=== PATIENT | female | born 1990 | race American Indian/Alaskan Native ===

== ENCOUNTER 2016-11-14 21:03 | Emergency (ER) | payer SELFPAY ==
[2016-11-14] MEDS ORDERED: Sodium Chloride 0.9% 2,000 ML IV ONE (21:14)
--- NOTE | 2016-11-14 21:16 | C.PDOC ---
History Of Present Illness Patient presents to the ER with a complaint of vaginal bleeding. Patient notes she is , P:0. Patient states she was seen at [facility] yesterday and had an US done that showed a miscarriage. Patient proceeded to go to work this morning, after work she started bleeding significantly. Patient reports soaking a few pads and having to change it every 20-30 minutes. Patient then states she sat on the toilet and had an syncopal episode which prompted her to come to the ER. Patient denies chest pain, palpitations or SOB. Time Seen by Provider: 11/14/16 21:14 Chief Complaint (Nursing): Female Genitourinary History Per: Patient History/Exam Limitations: no limitations Onset/Duration Of Symptoms: Hrs Current Symptoms Are (Timing): Still Present Severity: None Pain Scale Rating Of: 0 Quality Of Discomfort: Other (No pain) Associated Symptoms: denies: Chest Pain, Other (Palpitations, SOB) Alleviating Factors: None Recent travel outside of the [place]: No Abnormal Vaginal Bleeding: Yes : 3 Para: 0 Past Medical History Reviewed: Historical Data, Nursing Documentation, Vital Signs Vital Signs: Last Vital Signs Temp 98.8 F 11/15/16 01:05 Pulse 90 11/15/16 01:05 Resp 18 11/15/16 01:05 BP 118/74 11/15/16 01:05 Pulse Ox 96 11/15/16 01:05 - Medical History PMH: No Chronic Diseases Surgical History: No Surg Hx Family History: States: No Known Family Hx - Social History Hx Alcohol Use: Yes Hx Substance Use: No - Immunization History Hx Tetanus Toxoid Vaccination: Yes Hx Influenza Vaccination: Yes Hx Pneumococcal Vaccination: Yes Review Of Systems Cardiovascular: Negative for: Chest Pain, Palpitations Respiratory: Negative for: Shortness of Breath Genitourinary: Positive for: Vaginal Bleeding Physical Exam - Physical Exam Appears: Non-toxic Skin: Warm, Dry Oral Mucosa: Moist Chest: Symmetrical, No Tenderness Cardiovascular: Rhythm Regular, No Murmur Respiratory: No Rales, No Rhonchi, No Wheezing Gastrointestinal/Abdominal: Soft, No Tenderness Neurological/Psych: Oriented x3 ED Course And Treatment - Laboratory Results Result Diagrams: 11/14/16 21:41 11/14/16 21:41 ECG: Interpreted By Me, Viewed By Me ECG Rhythm: Sinus Rhythm (90), Nonspecific Changes O2 Sat by Pulse Oximetry: 100 (Room air) Pulse Ox Interpretation: Normal Progress Note: Blood work, EKG, urinalysis and pelvic US ordered. IV fluids administered. spoke with dr Pittman. will come and see the pt in the ed. 11:15 pm pt was seen by dr pittman. some clots removed from cervix. ok to give 0.2 methergine and 800 mcg cytotec. 3:28 AM no active bleeding. vitals stable, ok to dc Reevaluation Time: 03:25 Reassessment Condition: Improved Critical Care Time - Critical Care Note Total Time (in mins): 30 Documented critical care: time excludes all time spent performing seperately billable procedures. Medical Decision Making Medical Decision Making: Upon provider reevaluation patient is feeling better, is medically stable, and requires no further treatment in the ED at this time. Patient will be discharged home with Rx for flagl, zofran, percocet . Counseling was provided and all questions were answered regarding diagnosis and need for follow up with the referred clinic. There is agreement to discharge plan. Return if symptoms persist or worsen. Disposition Counseled Patient/Family Regarding: Studies Performed, Diagnosis, Need For Followup, Rx Given - Disposition Referrals: [facility] [Outside] [facility] [Outside] Disposition: HOME/ ROUTINE Disposition Time: 21:14 Condition: FAIR Prescriptions: Metronidazole [Flagyl] 500 mg PO BID #10 tablet Ondansetron ODT [Zofran ODT] 1 odt PO BID PRN #6 odt PRN Reason: Nausea/Vomiting oxyCODONE/Acetaminophen [Percocet 5/325 mg Tab] 1 tab PO QID PRN #12 tab PRN Reason: Pain Instructions: Spontaneous Miscarriage (ED) Forms: Work/School/Gym Excuse - Clinical Impression Clinical Impression: Spontaneous miscarriage - Scribe Statement The provider has reviewed the documentation as recorded by the Scribjessica Ludwig All medical record entries made by the Gurdeepibe were at my direction and personally dictated by me. I have reviewed the chart and agree that the record accurately reflects my personal performance of the history, physical exam, medical decision making, and the department course for this patient. I have also personally directed, reviewed, and agree with the discharge instructions and disposition.
[2016-11-14 21:45] LABS: BASO % 0.5 % (0.0-2.0); EOS # 0.1 K/uL (0.0-0.7); EOS % 0.7 % (0.0-4.0); LYMPH # 1.5 K/uL (1.0-4.3); LYMPH % 15.5 % (20.0-40.0); MEAN CELL VOLUME 78.6 fL (81.0-99.0); MEAN CORPUSCULAR HEMOGLOBIN 25.2 pg (27.0-31.0); MEAN CORPUSCULAR HGB CONC 32.1 g/dL (33.0-37.0); MEAN PLATELET VOLUME 8.9 fL (7.2-11.7); MONO # 0.4 K/uL (0.0-0.8); MONO % 3.9 % (0.0-10.0); NRBC % 0.1 % (0.0-2.0); RED CELL DISTRIBUTION WIDTH 15.6 % (11.5-14.5)
[2016-11-14 21:54] LABS: CHLORIDE 102 mmol/L (98-107); INR 1.1; SODIUM 136 mmol/L (132-148)
[2016-11-14 21:57] LABS: ALB/GLOB RATIO 1.3 (1.0-2.1); ALKALINE PHOSPHATASE 33 U/L (38-126); ALT/SGPT 19 U/L (9-52); AST/SGOT 22 U/L (14-36); BILIRUBIN,TOTAL 0.4 mg/dL (0.2-1.3); BLOOD UREA NITROGEN 19 mg/dL (7-17); CALCIUM 8.5 mg/dl (8.6-10.4); CARBON DIOXIDE 25 mmol/L (22-30); GFR AFRICAN-AMERICAN > 60; GLUCOSE,RANDOM 99 mg/dL (65-105); TOTAL PROTEIN 6.6 g/dL (6.3-8.3)
--- NOTE | 2016-11-14 23:44 | CP.PCM.CON ---
History of Present Illness - History of Present Illness History of Present Illness: Reason for consult-vaginal bleeding HPI Patient presents to the ER with a complaint of vaginal bleeding. Patient notes she is , P:0. Patient states she was seen at [facility] yesterday and had an US done that showed a miscarriage. Patient states that after she went home her bleeding slowed down and proceeded to go to work this morning, after work she started bleeding significantly and passed some clots at home this evening.while she was in bathroom. Patient then states she sat on the toilet and had an syncopal episode which prompted her to come to the ER. Patient denies chest pain, palpitations or SOB.Patient states that she does not feel light headed or dizzy anymore Review of Systems - Review of Systems All systems: reviewed and no additional remarkable complaints except - Cardiovascular Cardiovascular: absent: Chest Pain, Dyspnea, Lightheadedness, Palpitations, Rapid Heart Rate - Respiratory Respiratory: absent: Cough, Dyspnea - Gastrointestinal Gastrointestinal: absent: Nausea, Vomiting - Reproductive: Female Reproductive:Female: Abnormal Vaginal Bleeding Past Patient History - Past Social History Smoking Status: Never Smoked - CARDIAC Hx Cardiac Disorders: No - PULMONARY Hx Respiratory Disorders: No - NEUROLOGICAL Hx Neurological Disorder: No - RENAL Hx Chronic Kidney Disease: No - GASTROINTESTINAL Hx Gastrointestinal Disorders: No - GENITOURINARY/GYNECOLOGICAL LMP:: unknown : 3 Termination of : 2 - PSYCHIATRIC Hx Substance Use: No - SURGICAL HISTORY Hx Surgeries: No Other/Comment: 3 abortions - ANESTHESIA Hx Anesthesia: No Meds Allergies/Adverse Reactions: Allergies Allergy/AdvReac Type Severity Reaction Status Date / Time No Known Allergies Allergy Verified 11/14/16 21:11 Physical Exam - Constitutional Appears: Well, No Acute Distress - Respiratory Exam Respiratory Exam: Clear to Auscultation Bilateral, NORMAL BREATHING PATTERN - Cardiovascular Exam Cardiovascular Exam: REGULAR RHYTHM - GI/Abdominal Exam GI & Abdominal Exam: Soft. absent: Guarding, Hernia, Rigid, Tenderness - Extremities Exam Extremities exam: Negative for: calf tenderness - Back Exam Back exam: absent: CVA tenderness (L), CVA tenderness (R) - Neurological Exam Neurological exam: Alert, Oriented x3 - Psychiatric Exam Psychiatric exam: Normal Affect, Normal Mood - Skin Skin Exam: Normal Color Results - Vital Signs Recent Vital Signs: Last Vital Signs Temp 97.8 F 11/14/16 21:07 Pulse 68 11/14/16 22:52 Resp 19 11/14/16 22:52 BP 108/68 11/14/16 22:52 Pulse Ox 100 11/14/16 23:19 - Labs Result Diagrams: 11/14/16 21:41 11/14/16 21:41 Labs: Laboratory Results - last 24 hr 11/14/16 11/14/16 11/14/16 21:41 21:41 21:41 WBC 10.0 RBC 3.06 L Hgb 7.7 L Hct 24.0 L MCV 78.6 L MCH 25.2 L MCHC 32.1 L RDW 15.6 H Plt Count 214 MPV 8.9 Neut % (Auto) 79.4 H Lymph % (Auto) 15.5 L [place] % (Auto) 3.9 Eos % (Auto) 0.7 Baso % (Auto) 0.5 Neut # 7.9 H Lymph # 1.5 [place] # 0.4 Eos # 0.1 Baso # 0.0 PT 12.3 H INR 1.1 APTT 30 Sodium 136 Potassium 4.0 Chloride 102 Carbon Dioxide 25 Anion Gap 13 BUN 19 H Creatinine 0.6 L Est GFR ( Amer) > 60 Est GFR (Non-Af Amer) > 60 Random Glucose 99 Calcium 8.5 L Total Bilirubin 0.4 AST 22 ALT 19 Alkaline Phosphatase 33 L Total Protein 6.6 Albumin 3.7 Globulin 2.9 Albumin/Globulin Ratio 1.3 Beta HCG, Quant 2045.80 Blood Type Antibody Screen 11/14/16 21:41 WBC RBC Hgb Hct MCV MCH MCHC RDW Plt Count MPV Neut % (Auto) Lymph % (Auto) [place] % (Auto) Eos % (Auto) Baso % (Auto) Neut # Lymph # [place] # Eos # Baso # PT INR APTT Sodium Potassium Chloride Carbon Dioxide Anion Gap BUN Creatinine Est GFR ( Amer) Est GFR (Non-Af Amer) Random Glucose Calcium Total Bilirubin AST ALT Alkaline Phosphatase Total Protein Albumin Globulin Albumin/Globulin Ratio Beta HCG, Quant Blood Type O POSITIVE Antibody Screen Negative Assessment & Plan (1) Spontaneous miscarriage Assessment and Plan: Patient with spontaneous s/p ultrasound yesterday a [facility] where no intrauterine was seen.patientr eports episode of heavy bleeding today.BCG decreased from yesterday.Ultrasound today also shows endoemtrial lining measuring 6mm with clots in LUIGI/Cervix.On exam speculum exam-approx 100cc of blood clots removed from cervix and luigi by grasping with ring forceps.Bleeding slow after that.Patient denies feeling light headed or dizzy now.Vitals signs stable. Give im methergine and po cytotec 800mcg stat .Discussed with patient that if bleeding starts again would recommend d&c. Patient voices understanding the plan and desires to proceed.All questions answered. Status: Acute
[2016-11-15 03:27] VITALS: O2SAT 100
[2016-11-15 03:56] VITALS: BP 113/53; PULSE 95; RESP 16; TEMP 99
--- NOTE | 2016-11-15 08:59 | US ---
HISTORY: Heavy vaginal bleeding. Beta HCG results: 2045.80 LMP 09/10/2016 COMPARISON: None available. TECHNIQUE: Transvaginal only. Real -time technique with 2D, duplex and color Doppler FINDINGS: UTERUS: Measures 5.5 x 12.2 cm. Normal in size and appearance. No fibroid or other mass lesion seen. ENDOMETRIUM: Measures 6.1 mm in diameter. No ultrasound findings to suggest gestational sac or gestational pole. Well-formed fluid collection in the lower endometrial canal 1.2 x 3.5 x 2.8 cm. This appears be complex fluid with debris/hemorrhage. CERVIX: No cervical abnormality identified. RIGHT OVARY: Measures 2.4 x 2.7 cm. No solid mass. Normal flow. LEFT OVARY: Measures cm. No solid mass. Normal flow. FREE FLUID: No significant free fluid noted. OTHER FINDINGS: None. IMPRESSION: Findings consistent with impending . No visible ectopic gestation. Concordant results (preliminary interpretation) provided by [facility]. Procedure Completed: 22:06 Preliminary ([facility]) Report: Dictated and Authenticated: 22:42 Final Interpretation: 08:57. November 15, 2016.
--- NOTE | 2016-11-18 19:39 | CARD ---
APPROVED REPORT EKG Measurement Heart [id number] <Conclusion> Normal sinus rhythm with sinus arrhythmia Normal ECG
== END 2016-11-15 03:57 | disposition home or self-care (01) ==
LOC: C.ER 21:03
DX: O03.9 Complete or unspecified spontaneous abortion without complication (principal)
CPT/HCPCS: 76830; 80053; 84702; 85025; 85610; 85730; 86850; 86900; 96372; 96374; 99285; J1885; J2210; J7040

== ENCOUNTER 2016-11-19 19:12 | Observation (INO) | payer SELFPAY ==
[2016-11-19] MEDS ORDERED: Sodium Chloride 0.9% 1,000 ML IV ONE (20:05)
--- NOTE | 2016-11-19 20:05 | C.PDOC ---
History Of Present Illness Patient presents to the ED with complaints of increased vaginal bleeding today while in the shower. Patient states she was seen at [facility] on 2016 for a miscarriage. Patient is , LMP 08/2016, and denies any chest pain , SOB, or palpitations. Time Seen by Provider: 11/19/16 20:04 Chief Complaint (Nursing): Female Genitourinary History Per: Patient History/Exam Limitations: no limitations Onset/Duration Of Symptoms: Hrs Current Symptoms Are (Timing): Still Present Severity: Mild Pain Scale Rating Of: 4 Associated Symptoms: denies: Fever, Chills, Nausea, Vomiting Recent travel outside of the [place]: No Additional History Per: Prior Records Abnormal Vaginal Bleeding: Yes Last Menstral Period: 08/2016 : 3 Para: 0 Past Medical History Reviewed: Historical Data, Nursing Documentation, Vital Signs Vital Signs: Last Vital Signs Temp 98.7 F 11/20/16 01:07 Pulse 92 H 11/20/16 05:47 Resp 22 11/20/16 05:47 BP 112/58 L 11/20/16 05:47 Pulse Ox 100 11/20/16 06:38 Family History: States: Unknown Family Hx - Social History Hx Alcohol Use: Yes Hx Substance Use: No - Immunization History Hx Tetanus Toxoid Vaccination: No Hx Influenza Vaccination: Yes Hx Pneumococcal Vaccination: No Review Of Systems Constitutional: Negative for: Fever, Chills, Sweats Cardiovascular: Negative for: Chest Pain, Palpitations Respiratory: Negative for: Cough, Shortness of Breath Gastrointestinal: Negative for: Nausea, Vomiting, Abdominal Pain, Diarrhea Genitourinary: Positive for: Vaginal Bleeding Physical Exam - Physical Exam Appears: Non-toxic, No Acute Distress Skin: Warm, Dry Head: Atraumatic Oral Mucosa: Moist Neck: Supple Chest: Symmetrical, No Deformity Cardiovascular: Rhythm Regular Respiratory: No Rales, No Rhonchi, No Stridor, No Wheezing Gastrointestinal/Abdominal: Soft, No Tenderness, No Distention, No Guarding, No Rebound Extremity: Normal ROM, No Tenderness Neurological/Psych: Oriented x3 ED Course And Treatment - Laboratory Results Result Diagrams: 11/20/16 06:13 11/19/16 04:52 O2 Sat by Pulse Oximetry: 100 Pulse Ox Interpretation: Normal - CT Scan/US US Pelvis Other Rad Studies (CT/US): Read By Radiologist, Radiology Report Reviewed CT/US Interpretation: EXAM: US Pelvis Complete. CLINICAL HISTORY: 26 years old, female; Pain and signs and symptoms; Other: Bleeding; Pelvic pain; ;. Additional info: Retained products of conception. TECHNIQUE: Real-time pelvic ultrasound (complete) with image documentation. COMPARISON: No relevant prior studies available. FINDINGS: Uterus/cervix: The endometrium is slightly thickened and heterogeneous. Patient has been passing. clots today, and during this examination. No myometrial mass. Right ovary: Right ovary 2.5 cm. Normal blood flow. Left ovary: Left ovary is not seen due to overlying bowel gas. Free fluid: No free fluid. Other findings: No intrauterine is present. IMPRESSION: Spontaneous . No intrauterine . No adnexal lesions. . EXAM: US Pelvis, Transvaginal. CLINICAL HISTORY: 26 years old, female; Pain and signs and symptoms; Other: Bleeding; Pelvic pain; ;. Additional info: Retained products of conception. TECHNIQUE: Real-time transvaginal pelvic ultrasound (complete) with image documentation. Transvaginal. imaging was used for better evaluation of the endometrium and adnexa. COMPARISON: US - TRANSVAGINAL 11/14/2016 10:02:22 PM. FINDINGS: Uterus/cervix: Endometrial thickness 1.5 cm slightly heterogeneous. The uterus measures 12.2 cm. Endometrial thickness 1.5 cm. No myometrial mass. Right ovary: Right ovary 2.1 cm. Normal blood flow. Left ovary: Left ovary 2.9 cm. Normal blood flow. Free fluid: No free fluid. IMPRESSION: Spontaneous . No adnexal lesions. No IUP. Progress Note: spoke with dr patel. ok with pit and transfuse. awaiting US. vitals stable. 2:12 AM Pt feels better. As per Dr patel, ok with methergine 0.2 mg q6h x 4. 6am as repeat hb is 6.9 will admit for more blood transfusion. Spoke with dr pope, who will let the incoming junior oracle dba Critical Care Time - Critical Care Note Total Time (in mins): 30 Documented critical care: time excludes all time spent performing seperately billable procedures. ED OBSERVATION Date of observation admission: 11/19/16 Time of observation admission: 22:49 - Observation admission statement Patient is being placed in observation because:: hemorrhage - Goals of Observation Goals of observation are:: transfusion and eval by dr pope - Progress Note Progress Note: 11/19/16 22:49 vitals stable 11/20/16 00:47 feels slightly better, less bleeding with the pitosin and blood transfusion 11/20/16 02:47 almost no vag bleed, vitals stable 11/20/16 05:37 awating repeat H&H Disposition Counseled Patient/Family Regarding: Studies Performed, Diagnosis, Need For Followup, Rx Given - Disposition Disposition: HOME/ ROUTINE Disposition Time: 20:05 Condition: FAIR - Clinical Impression Clinical Impression: Spontaneous miscarriage, Anemia - Scribe Statement The provider has reviewed the documentation as recorded by the Scribjessica Bryson All medical record entries made by the Gurdeepibe were at my direction and personally dictated by me. I have reviewed the chart and agree that the record accurately reflects my personal performance of the history, physical exam, medical decision making, and the department course for this patient. I have also personally directed, reviewed, and agree with the discharge instructions and disposition. Physician Patient Turnover Patient Signed Over To: Tam Orr DO Handoff Comments: pending admission
[2016-11-19 20:30] LABS: BASO % 0.5 % (0.0-2.0); EOS # 0.1 K/uL (0.0-0.7); EOS % 0.7 % (0.0-4.0); HEMATOCRIT 17.8 % (34.0-47.0); LYMPH # 2.1 K/uL (1.0-4.3); LYMPH % 24.1 % (20.0-40.0); MEAN CELL VOLUME 79.2 fL (81.0-99.0); MEAN CORPUSCULAR HEMOGLOBIN 24.8 pg (27.0-31.0); MEAN CORPUSCULAR HGB CONC 31.3 g/dL (33.0-37.0); MEAN PLATELET VOLUME 8.1 fL (7.2-11.7); MONO # 0.5 K/uL (0.0-0.8); MONO % 5.5 % (0.0-10.0); NRBC % 0.1 % (0.0-2.0); RED CELL DISTRIBUTION WIDTH 15.6 % (11.5-14.5); WHITE BLOOD COUNT 8.8 K/uL (4.8-10.8)
[2016-11-19] MEDS ORDERED: cefOXitin IV 2 gm in Saline 2 GM in Sodium Chloride 0.9% 50 ML IV STA (20:49)
[2016-11-19 20:51] LABS: INR 1.1
[2016-11-19] MEDS ORDERED: cefOXitin IV 2 gm in Dextrose 2 GM/50 ML BAG IVPB STA (20:57)
[2016-11-19 21:16] LABS: CHLORIDE 102 mmol/L (98-107)
[2016-11-19 21:17] LABS: SODIUM 135 mmol/L (132-148)
[2016-11-19 21:18] LABS: POTASSIUM 3.9 mmol/L (3.6-5.2)
[2016-11-19 21:20] LABS: AST/SGOT 34 U/L (14-36); BILIRUBIN,TOTAL 0.4 mg/dL (0.2-1.3); CARBON DIOXIDE 25 mmol/L (22-30); GFR AFRICAN-AMERICAN > 60
[2016-11-19 21:22] LABS: ALB/GLOB RATIO 1.3 (1.0-2.1); ALKALINE PHOSPHATASE 39 U/L (38-126); ALT/SGPT 22 U/L (9-52); BLOOD UREA NITROGEN 13 mg/dL (7-17); CALCIUM 8.3 mg/dl (8.6-10.4); GLUCOSE,RANDOM 89 mg/dL (65-105); TOTAL PROTEIN 6.4 g/dL (6.3-8.3)
[2016-11-19] MEDS ORDERED: cefOXitin 2 GM in Sodium Chloride 0.9% 100 ML IVPB STA ×2 (21:35→21:37)
[2016-11-20 00:17] LABS: RBC URINE 25 /hpf (0-3); URINE BILIRUBIN NEGATIVE (NEGATIVE); URINE BLOOD 3+ (NEGATIVE); URINE COLOR Yellow (YELLOW); URINE GLUCOSE (UA) NORMAL (Normal); URINE KETONE TRACE mg/dL (NEGATIVE); URINE LEUKOCYTE ESTERASE TRACE Leu/uL (Negative); URINE PROTEIN 1+ mg/dL (NEGATIVE); URINE UROBILINOGEN NORMAL mg/dL (0.2-1.0); WBC URINE 13 /hpf (0-5)
[2016-11-20 05:40] LABS: HEMATOCRIT 19.8 % (34.0-47.0)
[2016-11-20] MEDS ORDERED: Lactated Ringer's 1,000 ML IV SCH (09:15)
--- NOTE | 2016-11-20 09:17 | CP.PCM.HP ---
History of Present Illness - History of Present Illness History of Present Illness: ER phone call at 8am regarding pateint for admission for blood. pt recived 2 unit and still h/h low started call at 7 am 11/20/16. pt has been here since last night 8 pm with vaginal started from few dayys. pt was her on and was send home. pt came back aslt night with heavy vb started at 6 pm , trickling down the legs. pt h/h 5.6/.8 after 2 unit h/h pt was given pitocin and methergin. pt states she was bleeding overnight.pt lmp august ??/. obhx primi pmh denies med none all nkda psh denies soch den sse 80-100 cc clots stuck at the cervix. clot was removed. pt started bleedig heavy. cervix dilated 2-3 cm. pelvic exam ext gen old blood. cervix dilated 3 cm. ut anteverted, no pal mass. sono no iup. thick hetronegous endometrium. 1.5 cm Present on Admission - Present on Admission Any Indicators Present on Admission: No History of DVT/PE: No History of Uncontrolled Diabetes: No Urinary Catheter: No Decubitus Ulcer Present: No Review of Systems - Reproductive: Female Reproductive:Female: Abnormal Vaginal Bleeding Past Patient History - Past Social History Smoking Status: Never Smoked - CARDIAC Hx Cardiac Disorders: No - PULMONARY Hx Respiratory Disorders: No - NEUROLOGICAL Hx Neurological Disorder: No - RENAL Hx Chronic Kidney Disease: No - GASTROINTESTINAL Hx Gastrointestinal Disorders: No - PSYCHIATRIC Hx Substance Use: No - SURGICAL HISTORY Hx Surgeries: No Other/Comment: 3 abortions - ANESTHESIA Hx Anesthesia: No Meds Home Medications: Home Medication List Medication Instructions Recorded Confirmed Type Methylergonovine Maleate 0.2 mg PO Q6H #3 tablet 11/20/16 Rx [Methergine] Allergies/Adverse Reactions: Allergies Allergy/AdvReac Type Severity Reaction Status Date / Time No Known Allergies Allergy Verified 11/19/16 19:25 Physical Exam - Exam Speculum exam: Vaginal Bleeding (mod with cervix dilated. 100 cc clot stuck at the cervix. ) Bimanual exam: NORMAL BIMANUAL EXAM (with mod heavy vb) Results - Vital Signs Recent Vital Signs: Last Vital Signs Temp 98.7 F 11/20/16 01:07 Pulse 91 H 11/20/16 06:44 Resp 21 11/20/16 06:44 BP 111/62 11/20/16 06:44 Pulse Ox 100 11/20/16 06:44 - Labs Result Diagrams: 11/20/16 06:13 11/19/16 04:52 Labs: Laboratory Results - last 24 hr 11/20/16 11/20/16 11/20/16 00:08 05:37 06:13 Hgb 6.6 L 6.9 L Hct 19.8 L 21.0 L Urine Color Yellow Urine Clarity Hazy Urine pH 6.0 Ur Specific [place] 1.013 Urine Protein 1+ H Urine Glucose (UA) Normal Urine Ketones Trace Urine Blood 3+ H Urine Nitrate Negative Urine Bilirubin Negative Urine Urobilinogen Normal Ur Leukocyte Esterase Trace Urine WBC (Auto) 13 H Urine RBC (Auto) 25 H Ur Squamous Epith Cells 1 Assessment & Plan - Assessment and Plan (Free Text) Assessment: 26 yr with incomplete /acute blood loss anemia Plan: plan 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 informed consent taken. r/a/b discussed. transfuse 2 units of blood after d&c. npo/ivf cont cefoxitin. repeat cbc in am OR Awre Lien aware - Date & Time Date: 11/20/16 Time: 08:40
[2016-11-20] MEDS ORDERED: Morphine 4 MG/ML VIAL ONE (09:32)
[2016-11-20] MEDS ORDERED: Oxycodone/Acetaminophen 5/325 mg Tab PO PRN (09:34)
--- NOTE | 2016-11-20 09:37 | PCM.SURG1 ---
Surgeon's Initial Post Op Note - Surgeon's Notes Surgeon: dr ferguson Glass Sander: none Type of Anesthesia: General LMA Anesthesia Administered By: dr dias Pre-Operative Diagnosis: 26 yr with incomplete / r/o acut blood loss anemia Operative Findings: see the op reoprt Post-Operative Diagnosis: same incomplete Operation Performed: suction d &c Specimen/Specimens Removed: poc Estimated Blood Loss: EBL {In ML}: 30 Blood Products Given: PRBC (2 units) Post-Op Condition: Good Date of Surgery/Procedure: 11/20/16 Time of Surgery/Procedure: 11:30
[2016-11-20] MEDS ORDERED: cefOXitin IV 1 gm in Dextrose 1 GM/50 ML BAG IVPB SCH (09:45)
[2016-11-20] MEDS ORDERED: Lactated Ringer's 1,000 ML IV ONE (10:34)
[2016-11-20] MEDS ORDERED: HYDROmorphone 0.5 mg/0.5 ml ISec IVP PRN (10:48)
[2016-11-20] MEDS ORDERED: Propofol 10 mg/ml Inj (20 ML) ONE (10:53)
[2016-11-20] MEDS ORDERED: Midazolam 2 MG/2 ML VIAL ONE (10:53)
[2016-11-20] MEDS ORDERED: Sodium Chloride 0.9% 1,000 ML IV ONE (11:30)
[2016-11-20] MEDS: cefOXitin IV 1 gm in Dextrose 1 GM/50 ML BAG IVPB SCH ×2 (12:48→20:06)
--- NOTE | 2016-11-20 13:57 | OP ---
PROCEDURE DATE: 11/20/2016 PREOPERATIVE DIAGNOSES: A 26-year-old 1, para 0 at 10 weeks, incomplete , acute bloo d loss anemia. POSTOPERATIVE DIAGNOSES: A 26-year-old 1, para 0 at 10 weeks, incomplete , acute blo od loss anemia. SURGEON: Víctor Diaz MD MANAGER COLLECTION SURGEON: None. ANESTHESIA: General anesthesia. ANESTHESIOLOGIST: Dr. Maldonado. COMPLICATIONS: None. ESTIMATED BLOOD LOSS: 30 mL. PROCEDURE PERFORMED: Suction D and C. PROCEDURE: After the informed consent was obtained, the patient was brought to the operating room, p laced on the table where general anesthesia was given. When anesthesia was found to be adequate, she was prepped and draped in normal sterile fashion. Examination performed, found uterus to be 7-8 wee ks size. No palpable adnexal masses. After that, the speculum was placed. There were a lot of clot s in the vagina. Anterior lip of the cervix was grasped with a tenaculum. A 7-[place] curette was in serted. A lot of clots were expressed, suction was done. After that, once this suction was done, th e curette was felt. The sharp curettage was done on all the bell of the uterus. Once again, the suction was done . There was now no more tissue coming out. After that, the tenaculum was taken off the anterior lip of cervix. The patient tolerated the procedure well. Laps, sponge, and i nstruments correct x 2. Víctor Diaz MD cc: [id number] TT: 11/20/2016 13:57:40 en
--- NOTE | 2016-11-20 19:31 | CP.PCM.PN ---
Subjective - Date & Time of Evaluation Date of Evaluation: 11/20/16 Time of Evaluation: 20:00 - Subjective Subjective: pt was seen at bed side.feels good,no bleeding, voiding, pain under control,no n /v. pt got 2 units of blood. pt would like to gome after cbc. Objective - Vital Signs/Intake and Output Vital Signs (last 24 hours): Temp Pulse Resp BP Pulse Ox 98.8 F 80 18 112/74 97 11/20/16 16:35 11/20/16 16:35 11/20/16 16:35 11/20/16 16:35 11/20/16 12:33 Intake and Output: 11/20/16 11/21/16 18:59 06:59 Intake Total 400 Balance 400 - Medications Medications: Current Medications Oxytocin (Pitocin 20 Units In Lr) 1,000 mls @ 125 mls/hr IV .Q8H KELSEA PRN Reason: Protocol Last Admin: 11/20/16 05:42 Dose: Not Given Lactated Ringer's (Lactated Ringer's) 1,000 mls @ 125 mls/hr IV .[facility] Last Admin: 11/20/16 09:06 Dose: 125 mls/hr Cefoxitin Sodium (Mefoxin Iv 1 Gm Duplex) 1 gm in 50 mls @ 50 mls/hr IVPB Q8H [facility] Stop: 11/21/16 05:59 Last Admin: 11/20/16 12:48 Dose: 50 mls/hr Ibuprofen (Motrin Tab) 600 mg PO Q6 PRN PRN Reason: Pain, moderate (4-7) Oxycodone/Acetaminophen (Percocet 5/325 Mg Tab) 1 tab PO Q6 PRN PRN Reason: Pain, severe (8-10) Stop: 11/23/16 09:35 - Labs Labs: 11/20/16 06:13 PT 12.4 SECONDS (9.7-12.2) H 11/19/16 04:52 INR 1.1 11/19/16 04:52 APTT 34 SECONDS (21-34) 11/19/16 04:52 Assessment and Plan - Assessment and Plan (Free Text) Assessment: 26 yr s/p suction d&c for incomplete /acute blood loss anemia s/p 4 unit prbc Plan: plan Dc home no sex x 2week motrin prn doxycyline 100 mg bid ferrous sulfate 325 mg bid f/u in clinic in 1-2week
[2016-11-20 20:26] VITALS: BP 117/62; PULSE 88; RESP 20; TEMP 98; O2SAT 100
[2016-11-20 21:04] LABS: BASO # 0.1 K/uL (0.0-0.2); BASO % 0.8 % (0.0-2.0); EOS # 0.2 K/uL (0.0-0.7); EOS % 2.8 % (0.0-4.0); HEMATOCRIT 26.3 % (34.0-47.0); LYMPH # 2.4 K/uL (1.0-4.3); LYMPH % 28.7 % (20.0-40.0); MEAN CELL VOLUME 83.8 fL (81.0-99.0); MEAN CORPUSCULAR HEMOGLOBIN 27.2 pg (27.0-31.0); MEAN CORPUSCULAR HGB CONC 32.5 g/dL (33.0-37.0); MEAN PLATELET VOLUME 8.4 fL (7.2-11.7); MONO # 0.4 K/uL (0.0-0.8); MONO % 5.3 % (0.0-10.0); NRBC % 0.2 % (0.0-2.0); RED CELL DISTRIBUTION WIDTH 15.6 % (11.5-14.5); WHITE BLOOD COUNT 8.3 K/uL (4.8-10.8)
--- NOTE | 2016-11-21 08:54 | US ---
HISTORY: retained products of conception COMPARISON: None available. TECHNIQUE: Transabdominal and transvaginal FINDINGS: UTERUS: Measures 11.4 x 4.6 x 5.2 cm. No uterine mass. Myometrium heterogeneous, uncertain significance. ENDOMETRIUM: Measures 15 mm in diameter. No intrauterine gestation identified. CERVIX: No cervical abnormality identified. RIGHT OVARY: Measures 2.1 x 3.0 x 2.6 cm. No solid mass. Normal flow. LEFT OVARY: Measures 2.9 x 2.5 x 2.3 cm. No solid mass. Normal flow. FREE FLUID: No significant free fluid noted. OTHER FINDINGS: None. IMPRESSION: No intrauterine gestation identified. Cannot rule out ectopic gestation on the basis of this examination. Please correlate with serial beta HCG evaluation. Please note that ultrasound examination of 11/14/2016 also fail to demonstrate an intrauterine gestation. Preliminary interpretation of this examination was reported by [facility] at 10:31 p.m. on 11/19/2016. There is concurrence of this report with the preliminary interpretation.
== END 2016-11-20 21:35 | disposition home or self-care (01) ==
LOC: C.ER 19:12 → C.9E 22:48 → C.9OBSV 11-20 01:37 → C.4M 11-20 09:12
PROVIDERS: ADMIT Emergency Medicine; ATTEND Obstetrics & Gynecology
DX: O03.4 Incomplete spontaneous abortion without complication (principal); D62 Acute posthemorrhagic anemia
CPT/HCPCS: 36415; 36430; 59812; 76830; 76856; 80053; 81001; 84702; 85014; 85018; 85025; 85610; 85730; 86850; 86900; 86920; 88305; 96360; 96361; 96365; 96372; 96375; 96376; 99285; G0378; J0694; J1885; J2250; J2270; J2704; J3010; J7040; J7120; P9051